=== PATIENT | female | born 1990 | race Caucasian/White ===

== ENCOUNTER 2020-05-31 13:56 | Outpatient (CLI) | payer OTHER ==
--- NOTE | 2020-05-31 16:14 | Ultrasound Report ---
PROCEDURE: Ext Limited Non Vascular INDICATIONS: DERMAL CYST TECHNIQUE: Real-time scanning was performed of the left lower extremity at the level of the knee, wi th image documentation. COMPARISON: None. FINDINGS: There is a 0.6 x 0.4 x 0.3 cm cyst in the subcutaneous fat anterior and lateral to the lef t knee which corresponds to palpable lesion. No solid component is associated with the cystic lesion. No soft tissue edema. Doppler evaluation demonstrates no increased vascularity to the lesion. IMPRESSION: 0.6 x 0.4 x 0.3 cm cyst corresponds to palpable lesion. Lesion has imaging characteristi cs consistent with epidermoid inclusion cyst. Reviewed by: Kathie Mcclure MD, PhD on 05/31/2020 4:13 PM PDT Approved by: Kathie Mcclure MD, PhD on 05/31/2020 4:13 PM PDT Station ID: [id number]
== END 2020-05-31 13:57 | disposition home or self-care (01) ==
LOC: DI 13:56
PROVIDERS: ATTEND Nurse Practitioner
DX: L72.9 Follicular cyst of the skin and subcutaneous tissue, unspecified (principal)
CPT/HCPCS: 76882

== ENCOUNTER 2020-12-02 12:10 | Outpatient (CLI) | payer OTHER | END 2020-12-02 23:59 | disposition home or self-care (01) | LOC: LAB.R 12:10 | PROVIDERS: ATTEND Family Medicine | DX: R05 Cough (principal); Z20.822 Contact with and (suspected) exposure to COVID-19 | CPT/HCPCS: 87275; 87276 ==

== ENCOUNTER 2023-09-24 19:32 | Outpatient (CLI) | payer OTHER | END 2023-09-24 19:33 | disposition critical access hospital (66) | LOC: EMS 19:32 | DX: M25.461 Effusion, right knee (principal); W01.0XXA Fall on same level from slipping, tripping and stumbling without subsequent striking against object, initial encounter; Y92.009 Unspecified place in unspecified non-institutional (private) residence as the place of occurrence of the external cause | CPT/HCPCS: A0425; A0429 ==

== ENCOUNTER 2023-09-29 08:00 | Outpatient (CLI) | payer OTHER ==
--- NOTE | 2023-09-29 16:18 | XRAY Report ---
PROCEDURE: Knee 4 View RT INDICATIONS: RIGHT KNEE PAIN TECHNIQUE: 4 views of the right knee(s) were acquired. COMPARISON: X-ray knee 09/24/2023 FINDINGS: Bones: Unchanged appearance of ossification projecting at the level of Hoffa's fat pad. Soft tissues: Minimal knee joint effusion. No suspicious soft tissue calcifications or masses. IMPRESSION: Stable appearance of potential avulsion fracture of the patellar retinaculum. Reviewed by: Tasha Recio MD on 09/29/2023 4:17 PM PDT Approved by: Tasha Recio MD on 09/29/2023 4:17 PM PDT Station ID: [id number]
== END 2023-09-29 23:59 | disposition home or self-care (01) ==
LOC: DI.WOS 08:00
PROVIDERS: ATTEND Physician Assistant Surgical
DX: M25.561 Pain in right knee (principal)

== ENCOUNTER 2023-10-03 06:54 | Outpatient (CLI) | payer OTHER ==
--- NOTE | 2023-10-03 16:04 | MRI Report ---
PROCEDURE: KNEE WO - RT INDICATIONS: INTERNAL DERANGEMENT TECHNIQUE: Noncontrast sagittal PD fast spin echo and T2 fast spin echo with fat saturation, sagittal 3-D gradie nt sequence with fat saturation; coronal T1 spin echo and PD fast spin echo with fat saturation, and axial PD fast spin echo with fat saturation through the knee. COMPARISON: Right knee radiograph dated 09/29/2023. FINDINGS: Image quality: Excellent. Menisci: The medial and lateral menisci demonstrate normal morphology and internal signal. The meni scal root ligaments appear intact. Cruciate ligaments: The anterior and posterior cruciate ligaments appear intact. Medial structures: The medial collateral ligament appears mildly thickened near its femoral insertio n. The posterior oblique ligament, semimembranosus tendon insertions, and oblique popliteal ligament , and meniscocapsular junction appear intact. Visualized portions of the pes anserinus tendons appea r normal. No abnormal bursal fluid. Lateral structures: The lateral collateral ligament, long and short heads of the biceps femoris tend on appear intact. The popliteus tendon appears normal; the popliteofibular ligament appears intact. Iliotibial band appears normal. Anterior structures: High-grade partial to full-thickness rupture of medial patellofemoral ligament a t its patellar insertion is noted. There is lateral subluxation of patella. The quadriceps and curtis lar tendons appear intact. No femoral trochlear dysplasia or ventral trochlear prominence. No edema in the infrapatellar fat pad. Bones and cartilage: Marrow edema involving medial periphery of patella and anterolateral periphery o f lateral femoral condyle is seen without definite fracture line or cortical disruption. No other are a of abnormal marrow signal. Low to moderate grade chondromalacia involving apex of patella cartilage is seen. The cartilage of the medial and lateral femorotibial compartments appears normal in thickne ss. Joint space: There is moderate knee joint fluid. No Rdz's cyst. Normal appearing synovial plicae are incidentally noted. IMPRESSION: 1. Finding is consistent with reduced lateral patellar dislocation with bony contusion involving post erior medial aspect of patella and anterolateral periphery of lateral femoral condyle. Slight lateral subluxation of patella. High-grade partial to full-thickness rupture involving medial patellofemoral ligament at its femoral insertion. 2. No other area of abnormal marrow signal. Focal moderate grade chondromalacia involving apex of pat zen cartilage. Moderate joint effusion, no gross loose bodies. 3. Low-grade MCL sprain near its femoral insertion. 4. The cruciate ligaments are intact. 5. No evidence of focal meniscal tear. Reviewed by: Zane Manley MD on 10/03/2023 1:47 PM PDT Approved by: Zane Manley MD on 10/03/2023 1:47 PM PDT Station ID: [id number]
== END 2023-10-03 06:55 | disposition home or self-care (01) ==
LOC: DI 06:54
PROVIDERS: ATTEND Physician Assistant Surgical
DX: S83.011A Lateral subluxation of right patella, initial encounter (principal); S83.8X1A Sprain of other specified parts of right knee, initial encounter; S83.411A Sprain of medial collateral ligament of right knee, initial encounter; M25.461 Effusion, right knee; M22.41 Chondromalacia patellae, right knee